=== PATIENT | female | born 1965 | race Caucasian/White ===

== ENCOUNTER 2017-09-06 10:09 | Observation (INO) ==
[2017-09-06] MEDS ORDERED: Ondansetron ODT 4 MG TAB.RAPDIS SL ONE (11:18)
[2017-09-06] MEDS ORDERED: *HR* Morphine Immed Rel 30 MG TABLET PO ONE (11:18)
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
[2017-09-06] MEDS ORDERED: Tdap (Boostrix) Vaccine 0.5 ML SYRINGE IM ONE (12:02)
[2017-09-06] MEDS ORDERED: Aspirin 81 MG TAB.CHEW PO ONE (13:09)
[2017-09-06 13:27] LABS: Basophils # 0.1 K/mcL (0.0-0.2); Basophils % 0.5 %; Eosinophils # 0.1 K/mcL (0.0-0.6); Hematocrit 41.3 % (35.3-44.9); Hemoglobin 13.6 g/dL (11.5-15.4); Immature Granulocytes % 0.3 % (0-4); Lymphocytes # 2.1 K/mcL (0.6-4.6); Lymphocytes % 17.3 %; Mean Corpuscular HGB Conc 32.9 g/dL (31.6-35.5); Mean Corpuscular Hemoglobin 33.3 pg (28.0-33.3); Mean Platelet Volume 10.9 fL (9.4-12.4); Monocytes # 1.1 K/mcL (0.0-1.3); Monocytes % 9.4 %; Neutrophils # 8.7 K/mcL (1.6-8.9); Platelet Count 190 K/mcL (140-400); Red Blood Count 4.09 M/mcL (3.82-4.97); Red Cell Distribution Width 12.2 % (11.5-14.5); Segmented Neutrophils % 71.5 %
[2017-09-06] MEDS ORDERED: *HR* FentaNYL (PF) 100 MCG/2 ML VIAL IVP ONE (13:28)
[2017-09-06 13:38] LABS: Calcium 8.9 mg/dL (8.6-10.3); Carbon Dioxide 22 mEq/L (23-29); Chloride 104 mEq/L (98-107); Potassium 3.8 mEq/L (3.5-5.1); Sodium 138 mEq/L (136-145)
[2017-09-06 13:43] LABS: BUN/Creatinine Ratio 14 (6-26); Blood Urea Nitrogen 9 mg/dL (6-20); Glucose 87 mg/dL (70-105); Osmolality,Calculated 284 (280-300); eGFR For African Americans > 60 (> 60); eGFR For Non-African Americans > 60 (> 60)
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
[2017-09-06] MEDS ORDERED: Naloxone 0.4 MG/ML INJ IVP PRN (15:42)
[2017-09-06] MEDS ORDERED: Acetaminophen 325 MG TABLET PO PRN (15:42)
[2017-09-06] MEDS: Ketorolac 30 MG/ML VIAL IVP PRN ×2 (16:32→23:07)
[2017-09-06] MEDS: Silvasorb 44.4 ML TUBE TP SCH (17:55)
[2017-09-06] MEDS: traMADol 50 MG TABLET PO PRN (18:08)
[2017-09-06] MEDS: Divalproex (24 HR) 250 MG TABLET PO SCH (20:06)
[2017-09-06] MEDS ORDERED: MORPHINE SUL Oral CONC 10 MG/0.5 ML ORAL.SYG SL PRN (21:52)
[2017-09-07] MEDS: Ketorolac 30 MG/ML VIAL IVP PRN ×3 (05:35→23:03)
[2017-09-07] MEDS: Silvasorb 44.4 ML TUBE TP SCH (05:36)
[2017-09-07] MEDS: FLUoxetine 20 MG CAPSULE PO SCH (09:18)
--- NOTE | 2017-09-07 10:27 | Neurology - Consult Note ---
<Michoacano Hess - Last Filed: 09/07/17 10:20> Date of Encounter: 09/07/17 Time of Encounter: 08:20 Assessment and Plan (1) Neurological deficit present Current Visit: Yes Status: Acute Upon examination the only acute change in neurologic examination is decreased sensation to the right face but the patient does have sensation just diminished when compared to the left. - There are concerns of recurrence right facial droop stated by the patient over the last 2 weeks. She does admit to a history of cardiac arrhythmia many years ago for which she was treated at [facility], she is not taking any medications is unsure of the arrhythmia. I discussed this with the primary team and recommended obtaining hospital records. I plan to do an echocardiogram to evaluate for thrombus. - She also states she has had blurriness to her right eye which is mildly present on examination. Imaging studies do not correlate with any findings of acute stroke or noticeable findings. I discussed this with the patient that she should probably follow-up with a transportation department supervisor for thorough eye examination. - At this time there are no significant findings for acute stroke. - With her history she would benefit from echocardiogram and potential Holter monitor for arrhythmias. History of Present Illness Chief complaint: facial droop. HPI: Ms. 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 According to Ms. Henry 2 weeks ago she slipped on the ice and hit the back of her head quite hard since then she has had blurriness in her right eye but did not seek any medical attention. During the past 2 weeks she also fell while hiking on her property hitting her head on a log and with the current fall that brought her to the emergency department for this visit. Her current fall consisted of she was pulled through her door by her large dog tripping landing on her left knee and rolling into her wood-burning stove sustaining coats to her right distal upper extremity and left palm of her hand when she reached over to the stove to pull herself up. During this fall she is unsure if she hit her head but her was concerned as she had right facial drooping. She states that since her initial head injury 2 weeks ago she has not had occasional right-sided facial droops that would resolve under 5 minutes on their own with no intervention. She has had numbness of her right face from below the eye to her jaw but denies any difficulty with closing her eyes, eating, swallowing or current facial movements. She denies any history of stroke but does have a history of a heart arrhythmia many years ago that she was treated at [facility]. She is unsure if it was atrial fibrillation or what type of arrhythmia was or what previous medication she used to take. She denies feeling any palpitations, beating in her chest, lightheadedness or dizziness. When asked why she is falling a lot she says that she has some chronic nerve damage in her left lower extremity but does not affect her muscle strength but sensory and each of the falls were secondary to slipping or tripping. With the change in vision in her right eye she states that is just blurry denies having any complete loss of vision or temporary loss of vision. She denies loss of any visual manuel just that the whole eye is blurry compared to the left. Since being in the hospital she denies any other acute changes to her neurologic status. Past Med Surg Social Fam HX - Past Medical History Medical history: COPD, hyperlipidemia, liver disease, thyroid disease Psychiatric history: bipolar, other - Past Surgical History Surgical History: hysterectomy - Social History Smoking Status: Current every day smoker Packs per day: 1/2 Smokeless Tobacco Status: No Alcohol use: none Drug use: none Medications and Allergies Divalproex (24 HR) [Depakote ER (24 HR)] 750 mg PO DAILY 09/06/17 [History] FLUoxetine HCl [PROzac] 20 mg PO DAILY 09/06/17 [History] Levothyroxine Sodium [Levoxyl] 50 mcg PO DAILY 09/06/17 [History] Montelukast [Singulair] 10 mg PO DAILY 09/06/17 [History] Potassium Chloride [K-Tab ER] 20 meq PO DAILY 09/06/17 [History] 3 Allergy/AdvReac Type Severity Reaction Status Date / Time acetaminophen [From Percocet] Allergy Rash Verified 09/06/17 10:23 Oxycodone [From Percocet] Allergy Rash Verified 09/06/17 10:23 All Systems: A 10-system review of systems was performed and is negative for pertinent findings except as documented above in the HPI. - Constitutional Constitutional ROS IM: no fatigue, no fever(s), no headache(s), no lethargy, no malaise, no weakness, no weight loss - Eyes Eyes: right: blurred vision - Nose, Mouth, Throat Nose, mouth and throat: no abnormal hearing, no change in voice, no disequilibrium, no dizziness, no headache(s) - Cardiovascular Cardiovascular ROS IM: no chest pain, no chest pain at rest, no chest pain with activity, no dyspnea, no dyspnea on exertion, no edema, no irregular heart rhythm, no radiating jaw, neck or arm pain, no palpitations, no rapid heart rate , no slow heart rate, no syncope - Respiratory Respiratory IM: no cough, no dyspnea, no wheezing - Gastrointestinal Gastrointestinal: no abdominal pain, no change in bowel habits, no constipation , no diarrhea - Genitourinary Genitourinary ROS: no change in urinary stream, no difficulty urinating - Musculoskeletal Musculoskeletal ROS IM: joint swelling (Current left knee after fall), numbness (Chronic left lower extremity, acute right face), no abnormal gait, no deformity , no muscle weakness Musculoskeletal: left: knee pain, knee swelling - Integumentary Integumentary IM: other (Coats to left palm and right forearm) - Neurological Neurological ROS: numbness (Right face), sensory deficit (Right face), other visual disturbances (Blurry right eye), no dizziness, no focal weakness, no frequent falls, no lack of coordination, no loss of vision, no syncope, no tremor(s), no weakness Physical Examination - Vital Signs Vital Signs: Initial Vital Signs Temp Pulse Resp BP Pulse Ox 99.3 F 81 16 110/71 98 09/06/17 10:23 09/06/17 10:23 09/06/17 10:23 09/06/17 10:23 09/06/17 10:23 - Exam Exam: Left palm burning without drainage or surrounding erythema or edema. Right distal forearm bandaged. - Constitutional General appearance: comfortable - Neurologic Detailed motor examination: grossly full strength in all extremities Motor examination - right side: 11/25: deltoids, biceps, triceps, wrist flexion, wrist extension, weatherization and housing inspector, hip flexors, tibialis Anterior, quadriceps, toe extension (EHL), plantarflexion Motor examination - left side: 5/5: deltoids, biceps, triceps, wrist flexion, wrist extension, hip flexors, weatherization and housing inspector, quadriceps, tibialis Anterior, toe extension (EHL), plantarflexion Detailed sensory examination: light touch (Patient says she has diminished right base sensation to light touch.) Reflex and gait examination: intact Reflexes: Biceps: 2+, Triceps: 2+, Brachioradialis: 2+, Patella: 2+, Achilles: 2 + Mental Status Examination: awake, alert, oriented to person, oriented to place, oriented to time, follows commands appropriately, answers questions appropriately, no aphasia, lucid Cranial nerve examination: PERRL, EOMI, visual manuel intact, corneal reflexes brisk symmetrically, mastication intact, no facial asymmetry is present, no dysarthria, hearing is intact symmetrically, soft palate elevates bilaterally upon phonation, tongue protrudes midline, no atrophy or facial fasiculations present Cerebellar examination: no dysmetria Results - Laboratory Findings CBC and BMP: 09/06/17 12:45 09/06/17 12:45 Abnormal lab findings: Abnormal lab results WBC 12.1 K/mcL (4.3-11.1) H 09/06/17 12:45 MCV 101.0 fL (83.0-100.0) H 09/06/17 12:45 Carbon Dioxide 22 mEq/L (23-29) L 09/06/17 12:45 Consult Discharge Plan - Plan Referrals: Tao Ford [Primary Care Provider] - <Denzel Luke I - Last Filed: 09/07/17 16:07> Date of Encounter: 09/07/17 History of Present Illness HPI: Ms. Henry is a 52 year old female All Systems: A 10-system review of systems was performed and is negative for pertinent findings except as documented above in the HPI. Physical Examination - Vital Signs Vital Signs: Initial Vital Signs Temp Pulse Resp BP Pulse Ox 99.3 F 81 16 110/71 98 09/06/17 10:23 09/06/17 10:23 09/06/17 10:23 09/06/17 10:23 09/06/17 10:23 Results - Laboratory Findings CBC and BMP: 09/06/17 12:45 09/07/17 05:13 Abnormal lab findings: Abnormal lab results WBC 12.1 K/mcL (4.3-11.1) H 09/06/17 12:45 MCV 101.0 fL (83.0-100.0) H 09/06/17 12:45 Carbon Dioxide 30 mEq/L (23-29) H 09/07/17 05:13 - Attending Attestation I examined this patient and my medical decision-making was reviewed with the Resident Physician, I agree with the documented findings, disposition and treatment plan as described except to the extent set forth below. No focal neurological deficit on current examination. Imaging studies including MRI of the brain as well as CT angiogram has been negative for any critical stenosis or any other parenchymal abnormality. This suspect her right arm numbness paresthesias could be related to localized impingement in the neck that could be worked up as an outpatient. Next line from neurology standpoint patient is a stable other workup is as per primary team Denzel Luke MD
[2017-09-07 11:28] LABS: BUN/Creatinine Ratio 13 (6-26); Blood Urea Nitrogen 12 mg/dL (6-20); Carbon Dioxide 30 mEq/L (23-29); Chloride 100 mEq/L (98-107); Glucose 97 mg/dL (70-105); Magnesium 2.1 mg/dL (1.6-2.6); Osmolality,Calculated 282 (280-300); Potassium 4.1 mEq/L (3.5-5.1); Sodium 136 mEq/L (136-145); eGFR For African Americans > 60 (> 60); eGFR For Non-African Americans > 60 (> 60)
--- NOTE | 2017-09-07 16:08 | Discharge Summary ---
Date of Encounter: 09/07/17 Time of Encounter: 09:50 - Discharge Diagnosis (1) Burn of forearm, right, second degree Priority: Secondary Status: Acute Comments: S/p fall into wood burning stove. Continue to apply silvasorb and wrap with Kerlix. Wound care was consulted. Qualifiers: Encounter type: initial encounter Qualified Code(s): T22.211A - Burn of second degree of right forearm, initial encounter (2) Contusion of left knee Priority: Secondary Status: Acute Comments: Status post fall at home. Patient has a small joint effusion without a fracture to the left knee. Patient is able to ambulate. Aniket wrap for support Follow with primary care. Qualifiers: Encounter type: initial encounter Qualified Code(s): S80.02XA - Contusion of left knee, initial encounter (3) Neurological deficit present Priority: Secondary Status: Acute Comments: Patient has intermittent decreased sensation to the right face. Patient does have sensation, and is just diminished when compared to the left. reports concerns of intermittent, recurring right facial droop over the last 2 weeks. Patient's reports that she does have some intermittent numbness and tingling to her left arm and blurred vision that resolve spontaneously. Patient has no neurological deficits at this time. Echocardiogram was ordered to assess for either clots or dysrhythmia revealed an LVEF of 6065% with mild LVDD no significant valvular dysfunction. All wall segments showed normal motion. Head CT is negative for any acute infarct. Recommend follow-up with outpatient MRI and possible EMG for nerve impingement. Recommend patient follow-up with ophthalmology for dilated exam. (4) COPD (chronic obstructive pulmonary disease) Priority: Secondary Status: Chronic Comments: No acute exacerbation at this time. Continue home medications. O2 as needed to maintain sats greater than 92%. Qualifiers: COPD type: emphysema Emphysema type: unspecified Qualified Code(s): J43.9 - Emphysema, unspecified (5) Hyperlipidemia Priority: Secondary Status: Chronic Comments: Chronic. Continue home medications. Qualifiers: Hyperlipidemia type: pure hypercholesterolemia Qualified Code(s): E78.00 - Pure hypercholesterolemia, unspecified; E78.0 - Pure hypercholesterolemia (6) DVT prophylaxis Priority: Secondary Status: Acute Comments: Patient has been ambulatory. JEREMY hose were ordered. (7) Arrhythmia Priority: Secondary Status: Suspected Comments: Patient reports prior arrhythmia, positive stress test, negative LHC at [facility] 8 years ago. We are attempting to retrieve old medical records to assess for diagnosis and results. Patient reports a one time she had been on medication for the dysrhythmia, she is unsure of what it is or why she stopped taking it. Differential diagnoses include dysrhythmia causing dizziness and falls at home. Patient denies chest pain, does say that she becomes dizzy at times. Echocardiogram with preserved EF, mild LV DT and no significant valvular dysfunction. All wall segments showed normal motion. Continue telemetry Obtain old records from [facility]. Qualifiers: Arrhythmia type: unspecified cardiac arrhythmia Qualified Code(s): I49.9 - Cardiac arrhythmia, unspecified - Discharge Medications Prescriptions: Silvasorb 1 appl TP DAILY #1 tube Home Medications: Divalproex (24 HR) [Depakote ER (24 HR)] 750 mg PO DAILY 09/06/17 [History] FLUoxetine HCl [Prozac] 20 mg PO DAILY 09/06/17 [History] Levothyroxine Sodium [Levoxyl] 50 mcg PO DAILY 09/06/17 [History] Montelukast [Singulair] 10 mg PO DAILY 09/06/17 [History] Potassium Chloride [K-Tab ER] 20 meq PO DAILY 09/06/17 [History] Silvasorb 1 appl TP DAILY #1 tube 09/07/17 [Rx] Allergies/Adverse Reactions: 3 Allergy/AdvReac Type Severity Reaction Status Date / Time acetaminophen [From Percocet] Allergy Rash Verified 09/06/17 10:23 Oxycodone [From Percocet] Allergy Rash Verified 09/06/17 10:23 Procedures/tests Complete & Pending: Procedures Performed prior 72 hours Category Date Time Status CT angio head [CT] Routine Cat Scan 09/06/17 17:00 Completed CTA Neck [CT angio neck] [CT] Routine Cat Scan 09/06/17 17:00 Completed EV echocardiogram Routine Y 09/07/17 09:42 Completed Date of admission: 09/06/17 13:51 Primary care physician: Tao Ford Consults: 09/06/17 15:48 Consult to Wound Care [CONS] Routine Reason for Consult: right forerm burn Time Notified: 15:48 Call Completed: No 09/06/17 15:49 Consult to Neurology [CONS] Routine Consulting Provider: Neurology [facility] Reason for Consult: tia Time Notified: 15:49 Call Completed: No 09/06/17 18:20 Consult to Orthopedic Surgery [CONS] Routine Consulting Provider: Jimmy Pantoja Reason for Consult: fall on left knee severe pain with small effusion Time Notified: 18:21 Call Completed: No Discharging clinician: Estefany Hummel Anticipated date of discharge: 09/07/17 - Patient Status Disposition: Home, Self-Care Condition: Good Functional capacity at discharge: independent ambulation Overall status at discharge: patient is back to baseline - Discharge Instructions Follow Up With: Tao Ford [Primary Care Provider] - Additional Instructions: Follow up with your PCP in the next 7-10 days for a follow up visit. Return to the ER as needed for any other problems or concerns. Take your normal medications as directed. Watch your coats on your left arm. Silvasorb called into pharmacy. Apply daily and keep burn covered, clean, and dry. Return to your normal activities as tolerated. Return to your normal diet as tolerated. - Diet and Activity Activity: increase activity as tolerated Diet: low fat, low cholesterol Hospital course: Ms. Henry is a 52 year old female with questionable past cardiac history, COPD , hyperlipidemia. Patient presented to the emergency department after several falls recently, one involving coats to her left forearm. Patient also presents with left knee contusion. There is no fractures there is a small joint effusion. An Aniket wrap is applied for stability. Patient has some sensory deficit to right cheek. There is no facial droop noted. She also reports intermittent tingling to left arm, both of these over the last 2 weeks. All symptoms resolved. She has had no memory loss or slurred speech. She does have some blurred vision and will need to follow up with ophthalmology after discharge. Suspect that symptoms are related to nerve impingement in the neck versus CVA symptoms. CT a of the neck was unremarkable and there are anterior plate and screws noted at C3 and C4. Head CTA is negative for any acute intracranial abnormality, as are head CT and brain MRI. Recommend EMG and follow-up with primary care after discharge. Echocardiogram showed preserved EF with mild LP DD no significant valvular dysfunction and normal wall motion in all segments. Patient reports prior history of dysrhythmia, LHC and positive stress test at [facility] 8 years ago. She is unsure of the dysrhythmia and states that she was taking medication at one point. She is unsure of what the medication is or why she stopped taking it. We are attempting to retrieve old medical records from [facility] to ascertain if patient needs further testing here. Certainly a dysrhythmia could cause falls. Labs and vitals are stable and within normal limits, patient is appropriate for discharge. - Time Spent with Patient Total time spent providing and/or coordinating discharge services: Less than 30 minutes - Constitutional Vitals: Temp Pulse Resp BP Pulse Ox 99.0 F 71 14 132/72 93 09/07/17 10:59 09/07/17 10:59 09/07/17 10:59 09/07/17 10:59 09/07/17 10:59 General appearance: Present: cooperative, A&O X 3, pleasant, no acute distress, answers questions appropriately - Head Head exam: Present: atraumatic, normal inspection, normocephalic - Eye Eye exam: Present: normal appearance, conjuntiva pink, sclera anicteric - Neck Neck exam general surgery: Present: supple, trachea midline. Absent: lymphadenopathy, tenderness - Respiratory Respiratory exam: Present: chest wall tenderness, CTAB. Absent: accessory muscle use, rales, respiratory distress, rhonchi, wheezes - Cardiovascular Cardiovascular exam: Present: RRR, +S1, +S2. Absent: diastolic murmur, gallop, rubs, systolic murmur - GI/Abdominal GI/Abdominal exam: Present: normal bowel sounds, soft. Absent: distended, hepatomegaly, tenderness - Extremities Exam Extremities exam: Present: normal capillary refill, normal inspection, warm, radial pulses palpable and symmetrical. Absent: calf tenderness, cyanotic, pedal edema - Neurological Exam Neurological exam: Present: alert, oriented X3, no focal deficits. Absent: facial droop, speech deficit - Skin Skin exam: Present: dry, intact, normal color, warm. Absent: rash
[2017-09-07] MEDS: traMADol 50 MG TABLET PO PRN (20:40)
[2017-09-07] MEDS: Divalproex (24 HR) 250 MG TABLET PO SCH (21:13)
--- NOTE | 2017-09-07 21:57 | Electrocardiograph Report ---
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
[2017-09-08] MEDS: FLUoxetine 20 MG CAPSULE PO SCH (08:11)
[2017-09-08] MEDS: Ketorolac 30 MG/ML VIAL IVP PRN (08:11)
[2017-09-08] MEDS: Silvasorb 44.4 ML TUBE TP SCH (08:11)
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
[2017-09-08 11:12] VITALS: BP 135/79
== END 2017-09-08 12:10 | disposition home or self-care (01) ==
LOC: EMEROO 10:09 → 3BNU 10:09
PROVIDERS: ADMIT Internal Medicine Cardiovascular Disease; ATTEND Registered Nurse